=== PATIENT | female | born 1985 | race Caucasian/White ===

== ENCOUNTER 2017-06-02 09:54 | Outpatient (CLI) ==
[2017-06-02 10:16] LABS: BASOPHILS # (AUTO) 0.1 K/uL (0-0.2); BASOPHILS % (AUTO) 0.9 % (0.0-3.0); EOSINOPHILS # (AUTO) 0.4 K/ul (0.0-0.7); HEMATOCRIT 37.2 % (37.0-47.0); HEMOGLOBIN 12.6 g/dl (12.0-16.0); IMMATURE GRANULOCYTE % (AUTO) 0.7 % (0.0-5.0); LYMPHOCYTES # (AUTO) 1.3 K/uL (0.60-3.4); LYMPHOCYTES % (AUTO) 19.7 (10.0-50.0); MEAN CORPUSCULAR HEMOGLOBIN 26.6 pg (27.0-31.0); MEAN CORPUSCULAR HGB CONC 33.9 (31.8-35.4); MEAN CORPUSCULAR VOLUME 78.5 fl (81.0-99.0); MONOCYTES # (AUTO) 0.6 K/uL (0.4-2.0); MONOCYTES % (AUTO) 8.4 (0-10); NEUTROPHILS # (AUTO) 4.4 K/ul (2.0-6.9); NEUTROPHILS % (AUTO) 64.3; PLATELET COUNT 247 10^3/uL (140-440); RED BLOOD COUNT 4.74 10^6/ul (4.20-5.40); WHITE BLOOD COUNT 6.81 K/ul (4.6-10.2)
--- NOTE | 2017-06-02 10:55 | CT ---
EXAM: CT Abdomen without contrast. CT Pelvis without contrast. HISTORY: Lower abdominal pain, worse on the left. Bloody stool. COMPARISON: 07/14/2010. TECHNIQUE: Multiple axial images of the abdomen and pelvis were obtained without intravenous contras t. Images were reformatted in the coronal plane. FINDINGS: Please note that evaluation of the abdominal and pelvic structures is limited due to lack of intravenous contrast. The lung bases are clear. No acute osseous abnormality identified. Large calcified stones seen in the gallbladder. The liver, pancreas, spleen, and adrenal glands demo nstrate normal contour. No calcified renal stones or hydronephrosis identified. There is mild focal wall thickening of the hepatic flexure of the colon without adjacent inflammation . Otherwise, the bowel is normal in course and caliber without evidence for obstruction or inflammat ory process. The appendix is normal. Numerous mesenteric lymph nodes are present measuring 1.1 cm s hort axis in the right abdomen on axial image 42. Lymph nodes are greater in size and number than no rmally expected, and this is a new finding since the prior examination. Uterus demonstrates normal c ontour. Urinary bladder is unremarkable. No free fluid or free air identified. Small fat-containin g umbilical hernia is present. IMPRESSION: 1. Focal colitis of the hepatic flexure, which could be infectious, inflammatory or ischemic in natu re. 2. Mesenteric lymphadenopathy, new from prior study, which could be due to #1 above. Follow-up in 3 months recommended for reassessment as lymphoproliferative process is not excluded. 3. Cholelithiasis.
[2017-06-02 10:56] LABS: ALBUMIN 3.1 g/dL (3.4-5.0); ALBUMIN/GLOBULIN RATIO 0.78; ANION GAP 11.6; BILIRUBIN,TOTAL 0.34 mg/dL (0.00-1.20); BUN/CREATININE RATIO 14.92; CALCIUM 8.9 mg/dL (8.2-10.2); CHOL/HDL RATIO 4.8 (4.5-5.5); CREATININE 0.67 mg/dL (0.60-1.30); POTASSIUM 3.6 mmol/L (3.5-5.10); TOTAL PROTEIN 7.1 g/dL (6.4-8.2)
== END 2017-06-02 09:55 | disposition home or self-care (01) ==
LOC: RAD 09:54
PROVIDERS: ATTEND Nurse Practitioner Family
DX: R10.9 Unspecified abdominal pain (principal); K92.1 Melena; I10 Essential (primary) hypertension; F32.9 Major depressive disorder, single episode, unspecified
CPT/HCPCS: 36415; 80053; 80061; 84443; 85025

== ENCOUNTER 2017-11-30 17:36 | Emergency (ER) ==
[2017-11-30 17:42] VITALS: TEMP 99.9; BMI 47.9
[2017-11-30] MEDS ORDERED: DECADRON 4 MG/ML SDV IM STA (18:06)
--- NOTE | 2017-11-30 18:23 | ED.PDOC ---
General ED Provider: Dr. ELAINE ACEVEDO Chief Complaint: Chest Wall Injury/Pain Stated Complaint: CHEST WALL PAIN AFTER COUGH Time Seen by Physician: 17:40 (WAS SEEN AT [facility] [place] FOR SAME ISSUE ) Mode of Arrival: Walk-In Information Source: Patient Exam Limitations: No limitations Nursing and Triage Documentation Reviewed and Agree: Yes (NO SOB) Reviewed sepsis parameters & appropriate labs ordered?: Yes System Inflammatory Response Syndrome: Not Applicable Sepsis Protocol: For patient's 13 years and over: Temp is 96.8 and below OR 101 and greater Pulse >90 BPM Resp >20/minute Acutely Altered Mental Status Are patient's symptoms suggestive of a new infection, such as: -Pneumonia -Skin, Soft Tissue -Endocarditis -UTI -Bone, Joint Infection -Implantable Device -Acute Abdominal Infection -Wound Infection -Meningitis -Blood Stream Catheter Infection -Unknown System Inflammatory Response Syndrome: Not Applicable Respiratory Complaint Exam - Respiratory Complaint/Exam Onset/Duration: 2 DAYS Symptoms Are: Resolved Timing: Intermittent Initial Severity: Moderate Current Severity: Mild Location: Nose, Throat, Chest Character: Reports: Non-productive cough Aggravating: Reports: URI Alleviating: Reports: Spontaneous resolution Associated Signs and Symptoms: Reports: URI, Nasal congestion. Denies: Rapid breathing, Dyspnea, Fever, Chills, Chest pain, Pleuritic chest pain, Wheezing, Hemoptysis, Dizziness, Calf pain, Calf swelling, Edema, Hoarseness, Sinus discomfort, Vomiting, Sore throat, Weight loss, Decreased oral intake, Increased thirst, Increased appetite, Increased urination Related History: Reports: Similar episode History of Healthcare-Acquired Pneumonia: No Related Surgical History: Reports: None Cardiac Risk Factors: Reports: None Pseudomonas Risk Factors: Reports: None Tuberculosis Risk Factors: Reports: None Status Asthmaticus Risk Factors: Reports: None Home Oxygen Use: No Recent Stress Test: No Recent Echo/LV Function: No Current Antibiotic Use: No Current Asthma Medication Use: No Respiratory Distress: None Inadequate Respiratory Effort: No Dysphagia Present: No Stridor Present: No JVD Present: No Accessory Muscle Use: No Retractions: Not Present Diminished Breath Sounds: No Sinus Tenderness: None Grunting Respirations: No Kussmaul Respirations: No Differential Diagnoses: Pneumonia, Bronchitis, Lower Resp. Infection Review of Systems - Review Of Systems Constitutional: Reports: No symptoms Eyes: Reports: No symptoms Ears, Nose, Mouth, Throat: Reports: No symptoms Respiratory: Reports: Cough Cardiac: Reports: No symptoms GI: Reports: No symptoms : Reports: No symptoms Musculoskeletal: Reports: No symptoms Skin: Reports: No symptoms Neurological: Reports: No symptoms Endocrine: Reports: No symptoms Hematologic/Lymphatic: Reports: No symptoms All Other Systems: Reviewed and Negative Past Medical History - Past Medical History Previously Healthy: Yes Endocrine: Reports: None Cardiovascular: Reports: None Respiratory: Reports: None Hematological: Reports: None Gastrointestinal: Reports: None Genitourinary: Reports: None Neuro/Psych: Reports: None Musculoskeletal: Reports: None Cancer: Reports: None Last Menstrual Period: 1 month - Surgical History General Surgical History: Reports: None - Family History Family History: Reports: None - Social History Smoking Status: Vaping Hx Substance Use: No Alcohol Screening: None Physical Exam - Physical Exam Appearance: Well-appearing, No pain distress, Well-nourished Eyes: HARRIET, EOMI, Conjunctiva clear ENT: Ears normal, Nose normal, Oropharynx normal Respiratory: Rhonchi Cardiovascular: RRR, Pulses normal, No rub, No murmur GI/: Soft, Nontender, No masses, Bowel sounds normal, No Organomegaly Musculoskeletal: Normal strength, ROM intact, No edema, No calf tenderness Skin: Warm, Dry, Normal color Neurological: Sensation intact, Motor intact, Reflexes intact, Cranial nerves intact, Alert, Oriented Psychiatric: Affect appropriate, Mood appropriate Interpretation - Radiology Interpretation Radiology Interpretation By: Radiologist Critical Care Note - Critical Care Note Total Time (mins): 0 Course - Course Orders, Labs, Meds: Orders Category Date Time Status URINE Stat LAB 11/30/17 18:05 Uncollected Dexamethasone 4 mg/ml Inj [Decadron 4 mg/ml Sdv] MEDS 11/30/17 18:06 Stat 4 mg IM ONCE STA CT CHEST W/O CONTRAST Stat RADS 11/30/17 18:06 Ordered Medications Discontinued Medications Generic Name Dose Route Start Last Admin Trade Name Freq PRN Reason Stop Dose Admin Dexamethasone Sodium Phosphate 4 mg 11/30/17 18:06 11/30/17 18:18 Decadron 4 Mg/Ml Sdv IM 11/30/17 18:07 4 mg ONCE STA Administration Vital Signs: Temp Pulse Resp BP Pulse Ox 11/30/17 17:36 99.9 F H 99 H 20 172/133 H 98 Departure - Departure Time of Disposition: 19:00 Disposition: HOME SELF-CARE Discharge Problem: Chest wall pain, Chest injury, Cough Instructions: Viral Syndrome (ED) Condition: Good Pt referred to PMD for follow-up: Yes IPMP verified?: No Additional Instructions: Please call your Family Physician as soon as possible to schedule a follow-up appointment. Allergies/Adverse Reactions: Allergies No Known Allergies Allergy (Verified 11/30/17 17:44) Disposition Discussed With: Patient
[2017-11-30 19:33] VITALS: BP 133/90
--- NOTE | 2017-11-30 19:34 | CT ---
EXAM: CT chest without intravenous contrast 11/30/2017. Sagittal and coronal reformatted images obt ained HISTORY: Cough. Left chest wall pain COMPARISON: 06/02/2017 FINDINGS: The heart size appears within normal limits. No pericardial effusion. The right lung appears normally aerated. Moderate left-sided pleural effusion. There is a small are a of consolidation overlying the left pleural effusion which may represent atelectasis and/or pneumon ia. No pneumothorax. No acute osseous abnormality. Limited views of the upper abdomen show multiple mildly enlarged mesen teric lymph nodes. This is only partially visualized. This is indeterminate. The prior study perfor med 06/02/2017 describes lymphadenopathy of the abdomen and recommended a 3-month follow-up examinati on. This would again be recommended if this has not already been performed. IMPRESSION: 1. Left pleural effusion with overlying consolidation. This may reside atelectasis and/or pneumonia . 2. Persistent abdominal lymphadenopathy is only partially visualized. Abdominal CT performed 2016 recommended a 3-month follow-up. No follow up abdominal CT identified. Outpatient abdominal CT should be obtained if this has not been performed at outside institution. 3. Gallstone. 4. No acute osseous abnormality.
[2017-11-30] MEDS ORDERED: ROCEPHIN IM STA (20:10)
[2017-11-30] MEDS ORDERED: LIDOCAINE HCL 1% SDV IM STA (20:10)
== END 2017-11-30 20:45 | disposition home or self-care (01) ==
LOC: ED 17:36
DX: B34.9 Viral infection, unspecified (principal); J90 Pleural effusion, not elsewhere classified; D72.829 Elevated white blood cell count, unspecified; R07.89 Other chest pain; R05 Cough
CPT/HCPCS: 36415; 80053; 81025; 83605; 84145; 85025; 87040; 96372; 99283

== ENCOUNTER 2017-12-14 20:52 | Emergency (ER) ==
[2017-12-14 21:05] VITALS: BP 143/90; TEMP 98.9; BMI 47.5
[2017-12-14] MEDS ORDERED: ZOFRAN 4 MG/2 ML IVP STA (22:19)
[2017-12-14] MEDS ORDERED: SODIUM CHLORIDE 1,000 ML IV STA (22:19)
[2017-12-14] MEDS ORDERED: K-DUR PO STA (23:12)
--- NOTE | 2017-12-15 00:09 | ED.PDOC ---
General ED Provider: Dr. HERRERA JAIMES Chief Complaint: Nausea/Vomiting Stated Complaint: Been vomiting, nauseous, diarrhea, 10 times. sick for 2-3 weeks, just finished antibiotics Time Seen by Physician: 00:07 Mode of Arrival: Walk-In Information Source: Patient Nursing and Triage Documentation Reviewed and Agree: Yes Reviewed sepsis parameters & appropriate labs ordered?: No System Inflammatory Response Syndrome: Not Applicable Sepsis Protocol: For patient's 13 years and over: Temp is 96.8 and below OR 101 and greater Pulse >90 BPM Resp >20/minute Acutely Altered Mental Status Are patient's symptoms suggestive of a new infection, such as: -Pneumonia -Skin, Soft Tissue -Endocarditis -UTI -Bone, Joint Infection -Implantable Device -Acute Abdominal Infection -Wound Infection -Meningitis -Blood Stream Catheter Infection -Unknown GI Complaint Exam - Vomiting/Diarrhea Complaint/Exam Symptoms Are: Still present Episodes of Vomiting over last 24 Hours: 5 Episodes of Diarrhea Over Last 24 Hours: 10 Initial Severity: Moderate Current Severity: Moderate Character of Vomiting: Reports: Non-bilious Character of Diarrhea: Reports: Watery Aggravating: Reports: Food, Liquids Alleviating: Reports: None Associated Signs and Symptoms: Reports: Light-headedness. Denies: Dizziness, Melena, Hematemesis, Fever, Abdominal pain, Cramping Recent Positive Test: No Use of Oral Contraceptives: No Non-GI Risk Factors: Reports: None Surgical Obstruction Risk Factors: Reports: None Related Surgical History: Reports: None Abdominal Findings: Absent: Pulsatile mass, Abdominal distention, Unequal femoral pulses Differential Diagnoses: Viral Gastroenteritis, Bacterial Gastroenteritis Review of Systems - Review Of Systems Constitutional: Reports: No symptoms Eyes: Reports: No symptoms Ears, Nose, Mouth, Throat: Reports: No symptoms Respiratory: Reports: No symptoms Cardiac: Reports: No symptoms GI: Reports: Nausea, Vomiting : Reports: No symptoms Musculoskeletal: Reports: No symptoms Skin: Reports: No symptoms Neurological: Reports: No symptoms Endocrine: Reports: No symptoms Hematologic/Lymphatic: Reports: No symptoms All Other Systems: Reviewed and Negative Past Medical History - Past Medical History Previously Healthy: Yes Endocrine: Reports: None Cardiovascular: Reports: None Respiratory: Reports: None Hematological: Reports: None Gastrointestinal: Reports: None Genitourinary: Reports: None Neuro/Psych: Reports: None Musculoskeletal: Reports: None Cancer: Reports: None Last Menstrual Period: ended 3 days ago - Surgical History General Surgical History: Reports: None - Family History Family History: Reports: None - Social History Smoking Status: Vaping Hx Substance Use: No Alcohol Screening: None Physical Exam - Physical Exam Appearance: Ill-appearing, No pain distress, Well-nourished, Obese Eyes: HARRIET, EOMI, Conjunctiva clear ENT: Ears normal, Nose normal, Oropharynx normal Respiratory: Airway patent, Breath sounds clear, Breath sounds equal, Respirations nonlabored Cardiovascular: RRR, Pulses normal, No rub, No murmur GI/: Soft, Nontender, No masses, Bowel sounds normal, No Organomegaly Musculoskeletal: Normal strength, ROM intact, No edema, No calf tenderness Skin: Warm, Dry, Normal color Neurological: Sensation intact, Motor intact, Reflexes intact, Cranial nerves intact, Alert, Oriented Psychiatric: Affect appropriate, Mood appropriate Critical Care Note - Critical Care Note Total Time (mins): 30 Course - Course Hematology/Chemistry: 12/14/17 22:26 12/14/17 22:26 Orders, Labs, Meds: Lab Review 12/14/17 12/14/17 22:26 22:26 WBC 10.33 H RBC 4.92 Hgb 12.4 Hct 38.8 MCV 78.9 L MCH 25.2 L MCHC 32.0 RDW Coeff of Gill 14.4 Plt Count 318 Immature Gran % (Auto) 0.2 Neut % (Auto) 67.7 Lymph % (Auto) 12.2 [place] % (Auto) 10.8 H Eos % (Auto) 8.3 H Baso % (Auto) 0.8 Immature Gran # (Auto) 0.0 Neut # (Auto) 7.0 H Lymph # (Auto) 1.3 [place] # (Auto) 1.1 Eos # (Auto) 0.9 H Baso # (Auto) 0.1 Sodium 139 Potassium 3.4 L Chloride 108 H Carbon Dioxide 19 L Anion Gap 15.4 BUN 14 Creatinine 0.70 Estimated GFR (MDRD) 98.00 BUN/Creatinine Ratio 20.00 Glucose 122 H Calcium 9.2 Total Bilirubin 0.8 AST 22 ALT 35 Alkaline Phosphatase 125 H Total Protein 7.7 Albumin 3.3 L Globulin 4.4 Albumin/Globulin Ratio 0.75 Orders Category Date Time Status ED IV/MEDIPORT/POWERPORT .ONCE EMERGENCY 12/14/17 22:19 Active CBC W/ AUTO DIFF Stat LAB 12/14/17 22:26 Completed COMPREHENSIVE METABOLIC PANEL Stat LAB 12/14/17 22:26 Completed URINALYSIS C & S IF INDICATED Stat LAB 12/14/17 22:19 Uncollected 0.9 % Sodium Chloride [Saline Flush] MEDS 12/14/17 22:19 Ordered 1 syr IVF PRN PRN Ondansetron HCl/Pf [Zofran 4 mg/2 ml] MEDS 12/14/17 22:19 Discontinued 4 mg IVP ONCE STA Potassium Chloride [K-Dur] MEDS 12/14/17 23:12 Discontinued 40 meq PO ONCE STA Sodium Chloride 0.9% [Sodium Chloride] 1,000 ml MEDS 12/14/17 22:19 Active IV 100 mls/hr Medications Generic Name Dose Route Start Last Admin Trade Name Freq PRN Reason Stop Dose Admin Sodium Chloride 1,000 mls @ 100 mls/hr 12/14/17 22:19 12/14/17 22:41 Sodium Chloride IV 12/15/17 08:18 100 mls/hr .Q10H STA Administration Sodium Chloride 1 syr 12/14/17 22:19 12/14/17 22:45 Saline Flush IVF 1 syr PRN PRN Administration To flush IV Discontinued Medications Generic Name Dose Route Start Last Admin Trade Name Freq PRN Reason Stop Dose Admin Ondansetron HCl 4 mg 12/14/17 22:19 12/14/17 22:43 Zofran 4 Mg/2 Ml IVP 12/14/17 22:20 4 mg ONCE STA Administration Potassium Chloride 40 meq 12/14/17 23:12 12/14/17 23:26 K-Dur PO 12/14/17 23:13 40 meq ONCE STA Administration Vital Signs: Temp Pulse Resp BP Pulse Ox 12/14/17 20:54 98.9 F 114 H 16 143/90 H 97 Departure - Departure Time of Disposition: 00:12 Disposition: HOME SELF-CARE Discharge Problem: Gastroenteritis Instructions: Gastroenteritis (DC) Condition: Stable Pt referred to PMD for follow-up: Yes IPMP verified?: No Additional Instructions: Increase Hydration soft diet for 3-4 days f/u with [facility] Prescriptions: Diphenoxylate HCl/Atropine [Lomotil 2.5-0.025 mg Tablet] 1 each PO BID PRN #10 tablet PRN Reason: Diarrhea Ondansetron [Zofran Odt] 4 mg PO Q8H #20 tab.rapdis Allergies/Adverse Reactions: Allergies No Known Allergies Allergy (Verified 11/30/17 17:44) Home Medications: Ambulatory Orders Diphenoxylate HCl/Atropine [Lomotil 2.5-0.025 mg Tablet] 1 each PO BID PRN #10 tablet 12/15/17 Ondansetron [Zofran Odt] 4 mg PO Q8H #20 tab.rapdis 12/15/17 Disposition Discussed With: Patient, Family
== END 2017-12-15 00:39 | disposition home or self-care (01) ==
LOC: ED 20:52
DX: K52.9 Noninfective gastroenteritis and colitis, unspecified (principal)
CPT/HCPCS: 36415; 80053; 81001; 85025; 96361; 96374; 99283

== ENCOUNTER 2018-04-01 23:13 | Emergency (ER) ==
[2018-04-01] MEDS ORDERED: GI COCKTAIL PO STA (23:33)
[2018-04-01] MEDS ORDERED: MORPHINE 2 MG/ML SYRINGE IM STA (23:34)
[2018-04-01] MEDS ORDERED: ZOFRAN 4 MG/2 ML IM STA (23:34)
[2018-04-01 23:35] VITALS: TEMP 97.5; BMI 45.8
--- NOTE | 2018-04-01 23:37 | ED.PDOC ---
General ED Provider: Dr. HERRERA JAIMES Chief Complaint: Chest Wall Injury/Pain Stated Complaint: Been having epigastric pain for 2 hrs, usually it come s and goes, this time not better, Time Seen by Physician: 23:35 Mode of Arrival: Walk-In Information Source: Patient Primary Care Provider: ELIZABETH SHEFFIELD Nursing and Triage Documentation Reviewed and Agree: Yes Does patient meet sepsis criteria?: No If yes, has appropriate treatment been initiated?: No System Inflammatory Response Syndrome: Not Applicable Sepsis Protocol: For patient's 13 years and over: Temp is 96.8 and below OR 101 and greater Pulse >90 BPM Resp >20/minute Acutely Altered Mental Status Are patient's symptoms suggestive of a new infection, such as: -Pneumonia -Skin, Soft Tissue -Endocarditis -UTI -Bone, Joint Infection -Implantable Device -Acute Abdominal Infection -Wound Infection -Meningitis -Blood Stream Catheter Infection -Unknown GI Complaint Exam - Abdominal Pain Complaint/Exam Onset: Sudden Symptoms Are: Still present Timing: Constant Initial Severity: Moderate Current Severity: Moderate Location of Pain: Epigastric Radiates To: Reports: Chest Character: Reports: Dull, Aching Aggravating: Reports: Movement, Food Alleviating: Reports: None Associated Signs and Symptoms: Reports: Nausea. Denies: Diaphoresis, Fever, Cough, Chest pain, Dizziness, Back pain, Constipation, Blood in stool, Dysuria, Urinary frequency, Decreased urine output, Decreased appetite, Vaginal bleeding , Vaginal discharge, Vomiting, Diarrhea, Sore throat, Decreased activity Related History: Reports: Similar episode AAA Risk Factors: Reports: None Cardiac Risk Factors: Reports: None Ectopic Risk Factors: Reports: None Ovarian Torsion Risk Factors: Reports: None Surgical Obstruction Risk Factors: Reports: None Related Surgical History: Reports: None Patient Rh Status: Unknown Abdominal Findings: Absent: Pulsatile mass, Abdominal distention, Unequal femoral pulses Differential Diagnoses: GB, PUD Review of Systems - Review Of Systems Constitutional: Reports: No symptoms Eyes: Reports: No symptoms Ears, Nose, Mouth, Throat: Reports: No symptoms Respiratory: Reports: No symptoms Cardiac: Reports: No symptoms GI: Reports: Abdominal pain : Reports: No symptoms Musculoskeletal: Reports: No symptoms Skin: Reports: No symptoms Neurological: Reports: No symptoms Endocrine: Reports: No symptoms Hematologic/Lymphatic: Reports: No symptoms All Other Systems: Reviewed and Negative Past Medical History - Past Medical History Previously Healthy: Yes Endocrine: Reports: None Cardiovascular: Reports: Hypertension Respiratory: Reports: None Hematological: Reports: None Gastrointestinal: Reports: Other (UC) Genitourinary: Reports: None Neuro/Psych: Reports: None Musculoskeletal: Reports: None Cancer: Reports: None Last Menstrual Period: 3-4 WEEKS AGO - Surgical History General Surgical History: Reports: Tonsillectomy - Family History Family History: Reports: None - Social History Smoking Status: Former smoker Hx Substance Use: No Alcohol Screening: None - Immunizations Tetanus Shot up to Date: Yes Physical Exam - Physical Exam Appearance: Ill-appearing, Obese Pain Distress: Moderate Eyes: EOMI ENT: Ears normal, Nose normal, Oropharynx normal Respiratory: Airway patent, Breath sounds clear, Breath sounds equal, Respirations nonlabored Cardiovascular: RRR, Pulses normal, No rub, No murmur GI/: Tender Musculoskeletal: Normal strength, ROM intact, No edema, No calf tenderness Skin: Warm, Dry, Normal color Neurological: Sensation intact, Motor intact, Reflexes intact, Cranial nerves intact, Alert, Oriented Psychiatric: Affect appropriate, Mood appropriate Interpretation - Radiology Interpretation Radiology Interpretation By: Radiologist Radiology Results: Negative Exam Interpreted: CT Scan Critical Care Note - Critical Care Note Total Time (mins): 30 Course - Course Hematology/Chemistry: 04/01/18 23:40 04/01/18 23:40 Orders, Labs, Meds: Lab Review 04/01/18 04/01/18 04/02/18 23:40 23:40 00:02 WBC 10.93 H RBC 4.49 Hgb 11.7 L Hct 35.6 L MCV 79.3 L MCH 26.1 L MCHC 32.9 RDW Coeff of Gill 14.9 H Plt Count 275 Immature Gran % (Auto) 0.3 Neut % (Auto) 66.6 Lymph % (Auto) 16.7 [place] % (Auto) 9.4 Eos % (Auto) 6.4 Baso % (Auto) 0.6 Immature Gran # (Auto) 0.0 Neut # (Auto) 7.3 H Lymph # (Auto) 1.8 [place] # (Auto) 1.0 Eos # (Auto) 0.7 Baso # (Auto) 0.1 Sodium 139 Potassium 3.8 Chloride 105 Carbon Dioxide 24 Anion Gap 13.8 BUN 14 Creatinine 0.71 Estimated GFR (MDRD) 97.00 BUN/Creatinine Ratio 19.71 Glucose 116 H Calcium 9.2 Total Bilirubin 0.3 AST 11 L ALT 15 Alkaline Phosphatase 110 H Total Creatine Kinase 98 Troponin I 0.0130 Total Protein 7.3 Albumin 3.2 L Globulin 4.1 Albumin/Globulin Ratio 0.78 Amylase 34 Lipase 15 Urine Color Yellow Urine Clarity Cloudy Urine pH 6.5 Ur Specific [place] >=1.030 Urine Protein 2+ Urine Glucose (UA) Negative Urine Ketones Trace Urine Blood Negative Urine Nitrite Negative Urine Bilirubin Negative Urine Urobilinogen 0.2 Ur Leukocyte Esterase Negative Urine Microscopic WBC 5-10 Ur Squamous Epith Cells 10-20 Amorphous Sediment 1+ Urine Bacteria 1+ Urine Mucus 1+ Urine Test 04/02/18 00:02 WBC RBC Hgb Hct MCV MCH MCHC RDW Coeff of Gill Plt Count Immature Gran % (Auto) Neut % (Auto) Lymph % (Auto) [place] % (Auto) Eos % (Auto) Baso % (Auto) Immature Gran # (Auto) Neut # (Auto) Lymph # (Auto) [place] # (Auto) Eos # (Auto) Baso # (Auto) Sodium Potassium Chloride Carbon Dioxide Anion Gap BUN Creatinine Estimated GFR (MDRD) BUN/Creatinine Ratio Glucose Calcium Total Bilirubin AST ALT Alkaline Phosphatase Total Creatine Kinase Troponin I Total Protein Albumin Globulin Albumin/Globulin Ratio Amylase Lipase Urine Color Urine Clarity Urine pH Ur Specific [place] Urine Protein Urine Glucose (UA) Urine Ketones Urine Blood Urine Nitrite Urine Bilirubin Urine Urobilinogen Ur Leukocyte Esterase Urine Microscopic WBC Ur Squamous Epith Cells Amorphous Sediment Urine Bacteria Urine Mucus Urine Test Negative Orders Category Date Time Status EKG-(ED ONLY) Stat CARDIO 04/01/18 23:33 Completed AMYLASE Stat LAB 04/01/18 23:40 Completed CBC W/ AUTO DIFF Stat LAB 04/01/18 23:40 Completed COMPREHENSIVE METABOLIC PANEL Stat LAB 04/01/18 23:40 Completed CREATINE KINASE Stat LAB 04/01/18 23:40 Completed LIPASE Stat LAB 04/01/18 23:40 Completed TROPONIN I Stat LAB 04/01/18 23:40 Completed URINALYSIS C & S IF INDICATED Stat LAB 04/02/18 00:02 Completed URINE CULTURE Stat LAB 04/02/18 00:02 Received URINE Stat LAB 04/02/18 00:02 Completed Mag-Al Plus//Lidocaine [Gi Cocktail] MEDS 04/01/18 23:33 Discontinued 30 ml PO ONCE STA Morphine Sulfate [Morphine 2 mg/ml Syringe] MEDS 04/01/18 23:34 Discontinued 2 mg IM ONCE STA Ondansetron HCl/Pf [Zofran 4 mg/2 ml] MEDS 04/01/18 23:34 Discontinued 4 mg IM ONCE STA CT ABDOMEN/PELVIS WO CONTRAST Stat RADS 04/01/18 23:33 Completed Medications Discontinued Medications Generic Name Dose Route Start Last Admin Trade Name Macrina PRN Reason Stop Dose Admin Al Hydroxide/Mg Hydroxide 30 ml 04/01/18 23:33 04/01/18 23:50 Gi Cocktail PO 04/01/18 23:34 30 ml ONCE STA Administration Morphine Sulfate 2 mg 04/01/18 23:34 04/01/18 23:47 Morphine 2 Mg/Ml Syringe IM 04/01/18 23:35 2 mg ONCE STA Administration Ondansetron HCl 4 mg 04/01/18 23:34 04/01/18 23:46 Zofran 4 Mg/2 Ml IM 04/01/18 23:35 4 mg ONCE STA Administration Vital Signs: Temp Pulse Resp BP Pulse Ox 04/01/18 23:13 97.5 F L 76 20 154/108 H 98 Departure - Departure Time of Disposition: 01:02 Disposition: HOME SELF-CARE Discharge Problem: Abdominal pain Instructions: Peptic Ulcer (ED) Condition: Stable Pt referred to PMD for follow-up: Yes IPMP verified?: No Additional Instructions: n spicy food No fried food. f/u with PMD Prescriptions: Pantoprazole Sodium [Protonix] 40 mg PO BIDAC #60 tablet. Sucralfate Susp [Carafate] 1 gm PO ACHS #1 bottle Allergies/Adverse Reactions: Allergies No Known Allergies Allergy (Verified 04/01/18 23:33) Home Medications: Ambulatory Orders Pantoprazole Sodium [Protonix] 40 mg PO BIDAC #60 tablet. 04/02/18 Sucralfate Susp [Carafate] 1 gm PO ACHS #1 bottle 04/02/18 Disposition Discussed With: Patient, Family
--- NOTE | 2018-04-02 00:53 | CT ---
EXAM: CT scan abdomen pelvis without contrast HISTORY: Abdominal pain COMPARISON: CT scan abdomen pelvis 06/02/2017 FINDINGS: Contiguous axial images were obtained from the lung bases to the symphysis pubis without c ontrast utilizing 3-mm collimation. Sagittal and coronal reconstructions were imaged and reviewed. There is minimal left basilar atelectasis.. Large gallstone seen within the gallbladder. The liver pancreas spleen and adrenal glands have normal unenhanced CT appearance. The kidneys are morphologic ally normal.. There is no CT evidence of appendicitis. There is no free fluid or inflammatory change s. There is an umbilical hernia containing only fat. Scattered subcentimeter mesenteric lymph nodes are noted.. Bone windows reveals no evidence of lytic or blastic lesions. IMPRESSION: Cholelithiasis. No acute intra-abdominal findings.
[2018-04-02 01:12] VITALS: BP 150/108
== END 2018-04-02 01:13 | disposition home or self-care (01) ==
LOC: ED 23:13
DX: R10.13 Epigastric pain (principal); R07.89 Other chest pain; R11.0 Nausea; I10 Essential (primary) hypertension
CPT/HCPCS: 36415; 80053; 81001; 81025; 82150; 82550; 83690; 84484; 85025; 87086; 93005; 93010; 96372; 99283